=== PATIENT | female | born 1940 | race Caucasian/White ===

== ENCOUNTER → 2019-03-13 | Outpatient (CLI) | payer OTHER ==
[~2019-03-13] VITALS: Ht 157.5 cm; Wt 80.7 kg
[~2019-03-13] MED LIST: CHOL500023 PO; DICL50TA2 PO; GABA100C9 PO; HYDR-3682 PO; HYDR-531 PO; LEVO50TA7 PO; LISI-646 PO; LOPE2CAP PO; LOVA40TA72 PO; METF-370 PO; OMEP20TA PO; PROM25TA5 PO; TRAZ50TA2 PO
[2019-03-13 13:56] LABS: Basophils # (auto) 0 uL; Eosinophils # (auto) 0.4 uL; Mean Corpuscular Hemoglobin 25.7 pg (28.0-32.0); Monocytes # (auto) 0.6 uL; Nucleated Red Blood Cells % 0.1 %
[2019-03-13 13:57] LABS: Basophils % (auto) 0.6 % (0.0-2.0); Eosinophils % (auto) 6.9 % (0.0-7.0); Hematocrit 35.1 % (36.0-46.0); Hemoglobin 11.2 g/dL (12.2-16.2); Lymphocytes % (auto) 30.9 % (10.0-50.0); Mean Corpuscular Hgb Conc. 31.9 g/dL (32.0-36.0); Mean Corpuscular Volume 80.5 fL (80.0-100.0); Monocytes % (auto) 9.2 % (0.0-12.0); Neutrophils # (auto) 3.3 uL; Neutrophils % (auto) 52.4 % (37.0-80.0); Platelet Count (auto) 346 10^3/uL (140-450); Red Blood Cells 4.36 10^6/uL (4.0-5.20); White Blood Cell 6.3 10^3/uL (4.4-10.8)
[2019-03-13 14:15] LABS: INR 0.94 (0.9-1.15); Partial Thromboplastin Time 28.8 sec (23.64-32.05)
[2019-03-13 14:22] LABS: BUN/Creatinine Ratio 17.5; Calcium 8.5 mg/dL (8.5-10.1); Potassium 3.7 mmol/L (3.5-5.1)
[2019-03-13 14:32] LABS: Urine Bacteria FEW /hpf (None Seen); Urine Blood Negative /uL (Negative); Urine Hyaline Cast FEW /lpf (0 - 2); Urine Mucus FEW (None Seen); Urine Specific Gravity 1.043 (1.001-1.035); Urine WBC 2 /hpf (0 - 5)
== END | disposition home or self-care (01) ==
LOC: SUR 13:45 → EDSTATUS 03-18 14:00
PROVIDERS: ATTEND Urology
DX: Z01.818 Encounter for other preprocedural examination (principal); D41.02 Neoplasm of uncertain behavior of left kidney; E66.9 Obesity, unspecified; E11.9 Type 2 diabetes mellitus without complications; Z87.891 Personal history of nicotine dependence; Z88.8 Allergy status to other drugs, medicaments and biological substances; Z88.1 Allergy status to other antibiotic agents; Z79.84 Long term (current) use of oral hypoglycemic drugs; Z79.899 Other long term (current) drug therapy; Z68.32 Body mass index [BMI] 32.0-32.9, adult
CPT/HCPCS: 36415; 80048; 81001; 85025; 85610; 85730; 86850; 86900; 86901; 87086

== ENCOUNTER 2023-10-15 07:53 | Emergency (ER) | payer OTHER ==
[~2023-10-15] VITALS: Ht 167.6 cm; Wt 93.0 kg
[~2023-10-15 07:53] MED LIST changes: +AMIO200T33 PO; +APIX5TAB PO; +DIGO1TAB48 PO; +GABA-1308 PO; -GABA100C9 PO; -LISI-646 PO; +LISI20TA56 PO; -LOPE2CAP PO; +PROM25TA10 PO; -PROM25TA5 PO; +TRAZ-227 PO; -TRAZ50TA2 PO
[2023-10-15 08:21] VITALS: TEMP 97.7
[2023-10-15 08:29] VITALS: PULSE 72; RESP 19; O2SAT 96
[2023-10-15] MEDS: HYDROcodone-ACET 10/325MG TAB PO ONE (08:45)
[2023-10-15 08:53] LABS: Urine Bacteria NONE SEEN /hpf (None Seen); Urine Blood Negative /uL (Negative); Urine Clarity Clear (Clear); Urine Hyaline Cast FEW /lpf (0 - 2); Urine Protein, UAD Negative (Negative); Urine Specific Gravity 1.009 (1.001-1.035); Urine Urobilinogen Normal (Negative); Urine WBC <1 /hpf (0 - 5)
[2023-10-15 08:55] LABS: Urine Color Straw (Yellow)
[2023-10-15] MEDS: cloNIDine HCL 0.1 MG TAB PO ONE (11:37)
[2023-10-15 14:01] VITALS: BP 108/46; PULSE 72; RESP 13; O2SAT 98
== END 2023-10-15 14:07 | disposition left against medical advice (07) ==
LOC: ER 07:53
DX: S09.90XA Unspecified injury of head, initial encounter (principal); I13.0 Hypertensive heart and chronic kidney disease with heart failure and stage 1 through stage 4 chronic kidney disease, or unspecified chronic kidney disease; E11.22 Type 2 diabetes mellitus with diabetic chronic kidney disease; N18.9 Chronic kidney disease, unspecified; I50.9 Heart failure, unspecified; Z79.899 Other long term (current) drug therapy; Z88.1 Allergy status to other antibiotic agents; Z88.8 Allergy status to other drugs, medicaments and biological substances; W05.0XXA Fall from non-moving wheelchair, initial encounter; Y93.89 Activity, other specified; Y92.89 Other specified places as the place of occurrence of the external cause; Y99.8 Other external cause status
CPT/HCPCS: 70450; 74176; 81001; 87086